=== PATIENT | male | born 1990 | race African-American/Black ===

== ENCOUNTER 2017-10-26 06:57 | Outpatient (CLI) | payer OTHER | END 2017-10-26 07:02 | disposition home or self-care (01) | LOC: SONOGRAMA 06:57 | DX: E04.1 Nontoxic single thyroid nodule (principal) ==

== ENCOUNTER 2018-06-14 07:10 | Outpatient (CLI) | payer OTHER | END 2018-06-14 07:14 | disposition home or self-care (01) | LOC: SONOGRAMA 07:10 | DX: E04.2 Nontoxic multinodular goiter (principal) ==